=== PATIENT | male | born 1990 | race Caucasian/White ===

== ENCOUNTER 2016-09-23 18:49 | Emergency (ER) | payer SELFPAY ==
[~2016-09-23] VITALS: Ht 172.7 cm; Wt 72.6 kg
[~2016-09-23 18:49] MED LIST: AMOXICILLIN500 M2 PO; AMOXICILLIN500 MG PO; ANAPROX DS550 MG PO; ATIVAN1 MG PO; AUGMENTIN 875 M1 TAB PO; BACTRIM DS 8001 TA1 PO; BENADRYL50 MG PO; CATAFLAM50 MG PO; CIPRO500 MG PO; CIPROFLOXACIN500 MG PO; CLINDAMYCIN HC300 MG PO; FIORICET 325 MG1 TAB PO; HYDROCODONE BIT1 T11 PO; IBU-8800 MG PO; MOTRIN800 MG PO; Motrin,Rufen800 MG PO; NKHM; NORCO 10-325 T1 EACH PO; NORFLEX100 MG PO; PEN-VEE K500 MG PO; PERCOCET 325 MG1 TA2 PO; SKELAXIN400 MG PO; TRAMADOL HCL50 MG PO; ULTRAM50 MG PO; XANAX0.25 MG PO; ZOFRAN ODT4 MG SL; ZYRTEC10 MG PO; Zofran4 MG PO
[2016-09-23] MEDS ORDERED: CLINDAMYCIN HC300 MG PO (19:35)
== END 2016-09-23 19:34 | disposition home or self-care (01) ==
LOC: ED 18:49
DX: H10.32 Unspecified acute conjunctivitis, left eye (principal); K04.7 Periapical abscess without sinus; Z98.890 Other specified postprocedural states; Z88.8 Allergy status to other drugs, medicaments and biological substances

== ENCOUNTER 2017-04-29 12:42 | Emergency (ER) | payer SELFPAY ==
[~2017-04-29] VITALS: Ht 172.7 cm; Wt 77.1 kg
[2017-04-29 13:14] LABS: BASO % 0.5 % (0.0-1.0); EOS # 0.2 10*3/uL (0.0-0.4); EOS % 2.9 % (1.0-4.0); HEMATOCRIT 44.2 % (42.0-52.0); HEMOGLOBIN 15.2 g/dl (14.0-18.0); LYMPH # 2.1 10*3/uL (1.3-4.4); LYMPH % 36.5 % (27.0-41.0); MEAN CORPUSCULAR HGB 30.3 pg (27.0-31.0); MEAN CORPUSCULAR HGB CONC 34.4 g/dl (33.0-37.0); MEAN PLATELET VOLUME 11.4 fl (9.6-12.3); MONO # 0.4 10*3/uL (0.1-1.0); MONO % 6.5 % (3.0-9.0); NEUT # 3.1 10*3/uL (2.3-7.9); NEUT % 53.1 % (47.0-73.0); PLATELET COUNT AUTOMATED 137 10*3/uL (130-400); RED BLOOD COUNT 5.02 10*6/uL (4.50-5.90); RED CELL DISTRI WIDTH 12.4 % (0-14.5); WHITE BLOOD COUNT 5.9 10*3/uL (4.8-10.8)
[2017-04-29 13:23] LABS: ACT PARTIAL THROMBO TIME 26.1 SECONDS (20.8-31.5)
[2017-04-29 13:30] LABS: ALBUMIN 3.8 gm/dl (3.1-4.5); ALKALINE PHOSPHATASE 82 U/L (45-117); BUN 15 mg/dl (7-24); CHLORIDE 107 mmol/L (98-107); CREATININE 0.97 mg/dL (0.70-1.30); POTASSIUM 4.6 mmol/L (3.5-5.1); SGOT/AST 161 IU/L (3-35); SGPT/ALT 336 U/L (12-78); SODIUM 141 mmol/L (136-145); TOTAL PROTEIN 7.1 gm/dL (6.4-8.2)
[2017-04-29 13:31] LABS: TROPONIN I < 0.015 ng/ml (<0.045)
[2017-04-29] MEDS ORDERED: NAPROSYN500 MG PO (15:28)
== END 2017-04-29 16:31 | disposition home or self-care (01) ==
LOC: ED 12:42
PROVIDERS: Nurse Practitioner Family
DX: R07.9 Chest pain, unspecified (principal); R03.0 Elevated blood-pressure reading, without diagnosis of hypertension; R94.5 Abnormal results of liver function studies; F17.200 Nicotine dependence, unspecified, uncomplicated; Z88.8 Allergy status to other drugs, medicaments and biological substances

== ENCOUNTER 2017-07-19 12:26 | Emergency (ER) | payer SELFPAY ==
[~2017-07-19] VITALS: Ht 172.7 cm; Wt 70.3 kg
[~2017-07-19 12:26] MED LIST changes: +NAPROSYN500 MG PO
[2017-07-19] MEDS ORDERED: KEFLEX500 M1 PO (14:54)
[2017-07-19] MEDS ORDERED: ACETAMINOPHEN500 M4 PO (15:09)
[2017-07-19] MEDS ORDERED: IBUPROFEN400 MG PO (15:09)
[2017-07-19] MEDS ORDERED: TRIPLE ANTIBI28.4 GM T (15:09)
== END 2017-07-19 15:14 | disposition home or self-care (01) ==
LOC: ED 12:26
DX: S61.302A Unspecified open wound of right middle finger with damage to nail, initial encounter (principal); F32.9 Major depressive disorder, single episode, unspecified; F17.200 Nicotine dependence, unspecified, uncomplicated; F10.10 Alcohol abuse, uncomplicated; Z88.8 Allergy status to other drugs, medicaments and biological substances; Z79.899 Other long term (current) drug therapy; T71.9XXA Asphyxiation due to unspecified cause, initial encounter; Y93.89 Activity, other specified; Y92.89 Other specified places as the place of occurrence of the external cause; Y99.8 Other external cause status

== ENCOUNTER 2019-05-15 21:30 | Inpatient (IN) | payer OTHER ==
[~2019-05-15] VITALS: Ht 172.7 cm; Wt 72.6 kg
[~2019-05-15 21:30] MED LIST changes: +ACETAMINOPHEN500 M4 PO; +AMINOPHYLLIN200 MG PO; +FLOMAX0.4 MG PO; +IBUPROFEN400 MG PO; +KEFLEX500 M1 PO; +TRIPLE ANTIBI28.4 GM T
[2019-05-15 21:31] VITALS: BP 138/65
[2019-05-15 22:26] LABS: BASO % 0.1 % (0.0-1.0); EOS % 0.1 % (1.0-4.0); HEMATOCRIT 44.6 % (42.0-52.0); HEMOGLOBIN 15.3 g/dl (14.0-18.0); LYMPH # 2.5 10*3/uL (1.3-4.4); MEAN CORPUSCULAR HGB 30.2 pg (27.0-31.0); MEAN CORPUSCULAR HGB CONC 34.3 g/dl (33.0-37.0); MEAN PLATELET VOLUME 11.4 fl (9.6-12.3); MONO # 1.4 10*3/uL (0.1-1.0); MONO % 8.8 % (3.0-9.0); NEUT # 11.7 10*3/uL (2.3-7.9); NEUT % 74.7 % (47.0-73.0); PLATELET COUNT AUTOMATED 171 10*3/uL (130-400); RED BLOOD COUNT 5.07 10*6/uL (4.50-5.90); RED CELL DISTRI WIDTH 11.9 % (0-14.5); WHITE BLOOD COUNT 15.6 10*3/uL (4.8-10.8)
[2019-05-15 22:43] LABS: ALBUMIN 4.2 gm/dl (3.1-4.5); ALKALINE PHOSPHATASE 77 U/L (45-117); BUN 12 mg/dl (7-24); CHLORIDE 103 mmol/L (98-107); CREATININE 0.81 mg/dL (0.70-1.30); POTASSIUM 3.7 mmol/L (3.5-5.1); SGOT/AST 25 IU/L (3-35); SGPT/ALT 65 U/L (12-78); SODIUM 137 mmol/L (136-145); TOTAL PROTEIN 7.6 gm/dL (6.4-8.2)
[2019-05-15 22:45] LABS: TROPONIN I < 0.015 ng/ml (<0.045)
--- NOTE | 2019-05-16 03:29 | NUR ---
Time: N A 29 year old MALE admitted to [facility] under services of RENETTA MITCHELL DO. Pt. arrived via wheel chair from ER. Chief complaint: TOOTHACHE FOR PAST 2 DAYS RIGHT SIDE OF FACE SWOLLEN. TRAE NAVAS
[2019-05-16 03:31] VITALS: BP 120/82
--- NOTE | 2019-05-16 04:04 | NUR ---
PT TAKES NO HOME MEDS.
[2019-05-16 05:49] LABS: ALBUMIN 3.6 gm/dl (3.1-4.5); BUN 13 mg/dl (7-24); CHLORIDE 107 mmol/L (98-107); CREATININE 0.81 mg/dL (0.70-1.30); PHOSPHOROUS 2.3 mg/dL (2.5-4.9); POTASSIUM 3.7 mmol/L (3.5-5.1); SGOT/AST 25 IU/L (3-35); SGPT/ALT 55 U/L (12-78); SODIUM 140 mmol/L (136-145); TOTAL PROTEIN 6.9 gm/dL (6.4-8.2)
[2019-05-16 05:58] LABS: ALKALINE PHOSPHATASE 65 U/L (45-117); THYROID STIM HORMONE (HS) 0.977 uIU/ml (0.358-4.75)
--- NOTE | 2019-05-16 06:04 | NUR ---
PER ADMISSION RN CONSULT NOT TO BE MADE UNTIL AFTER 7AM FOR DR CLAIRE.
[2019-05-16 06:36] LABS: BASO % 0.2 % (0.0-1.0); EOS % 0.3 % (1.0-4.0); HEMATOCRIT 41.8 % (42.0-52.0); HEMOGLOBIN 14.1 g/dl (14.0-18.0); LYMPH # 2.8 10*3/uL (1.3-4.4); LYMPH % 21.9 % (27.0-41.0); MEAN CELL VOLUME 88.4 fl (80.0-94.0); MEAN CORPUSCULAR HGB 29.8 pg (27.0-31.0); MEAN CORPUSCULAR HGB CONC 33.7 g/dl (33.0-37.0); MEAN PLATELET VOLUME 11.8 fl (9.6-12.3); MONO # 1.2 10*3/uL (0.1-1.0); MONO % 9.6 % (3.0-9.0); NEUT # 8.7 10*3/uL (2.3-7.9); NEUT % 67.8 % (47.0-73.0); PLATELET COUNT AUTOMATED 142 10*3/uL (130-400); RED BLOOD COUNT 4.73 10*6/uL (4.50-5.90); RED CELL DISTRI WIDTH 11.9 % (0-14.5); WHITE BLOOD COUNT 12.8 10*3/uL (4.8-10.8)
[2019-05-16 06:59] LABS: INTERNATIONAL NORM RATIO 0.9 (2.0-3.5)
--- NOTE | 2019-05-16 07:15 | NUR ---
PT IN BED RATES PAIN AT 910 REQUSTING PAIN MEDICATION PULSE 67 RESP 16 B/P 125/68
[2019-05-16 07:16] VITALS: BP 125/68
--- NOTE | 2019-05-16 10:22 | NUR ---
DR CLAIRE CALLED FOR CONSULT OFFICE CLOSED TODAY [phone] AND NO ANSWER ON CELL PHONE [phone] THIS RN LEFT MESSAGE TO RETURN CALL TO [facility] ER
[2019-05-16 11:15] VITALS: BP 121/71
--- NOTE | 2019-05-16 12:25 | NUR ---
PATIENT REPORTS PAIN RELIEF
--- NOTE | 2019-05-16 13:13 | NUR ---
The patient, THEO PADRON, 29, [birth year], [id number], [id number], presented to the Emergency Department at 2136. The patient's Chief Complaint was DENTAL ABSCESS . The patient subsequently left "Against Medical Advice" at 1313. Treatment completed included VS, EXAM, LAB, MED, CT, RT . Possible complications and consequences of not following medical advice were clearly explained to the patient by Dr. BURRIS , and EMANUEL ASHLEY RN. Assessment of the patient's competence, for making the decision to refuse completion of previously requested exam and treatment, includes alert and oriented. Attempts WERE made to get patient involved in persuading the patient to accept, Dr. ANDREAS ALCAZARISMAEL, the physician's recommendations. Discussion included BENEFITS OF STAYING VS RISKS OF LEAVING. The patient's response was "I'M GOING TO SEE DR CLAIRE TOMORROW" . Family/friends who witnessed the discussion includes PATIENT . Signatures WERE requested. The patient DID sign the chart; this was witnessed by EMANUEL ASHLEY RN. The patient's reason for departing, prior to completion of treatment was "refuses to be admitted". The patient's disposition is dc against medical advice, to the care of self. Arrangements have been made for the ED staff to "Call Back" the patient the following day, to inquire about the patient's medical status and encourage THEO PADRON, to seek medical attention, if this has not been completed. EMANUEL ASHLEY.
== END 2019-05-16 13:55 | disposition left against medical advice (07) | DRG 159 ==
LOC: ED 21:30 → EDHOLD 23:37 → 4E 05-16 12:30
PROVIDERS: Nurse Practitioner Family; Student in an Organized Health Care Education/Training Program; ADMIT Family Medicine
DX: K04.7 Periapical abscess without sinus (principal); K02.9 Dental caries, unspecified; R03.0 Elevated blood-pressure reading, without diagnosis of hypertension; Z53.29 Procedure and treatment not carried out because of patient's decision for other reasons; F32.9 Major depressive disorder, single episode, unspecified; R73.9 Hyperglycemia, unspecified; E80.6 Other disorders of bilirubin metabolism; F17.210 Nicotine dependence, cigarettes, uncomplicated; Z71.6 Tobacco abuse counseling

== ENCOUNTER 2023-01-28 12:48 | Emergency (ER) | payer SELFPAY | END 2023-01-28 12:52 | disposition left against medical advice (07) | LOC: ED 12:48 | DX: R10.9 Unspecified abdominal pain (principal); Z88.8 Allergy status to other drugs, medicaments and biological substances; Z53.21 Procedure and treatment not carried out due to patient leaving prior to being seen by health care provider ==